=== PATIENT | female | born 1965 | race Two or more races ===

== ENCOUNTER 2016-11-04 19:53 | Emergency (ER) | payer SELFPAY ==
[2015-09-22 12:31] VITALS: BMI 44.8
[~2016-11-04 19:53] MED LIST: ASPIRIN325 MG PO; PROTONIX40 MG PO; VENTOLIN HFA18 GM INH
[2016-11-04 20:28] LABS: BASOPHILS 0.2 % (0.0-2.0); EOSINOPHILS 2.4 % (0-7); HEMATOCRIT 36.4 % (36.0-48.0); HEMOGLOBIN 12.4 g/dL (12-16); IMMATURE GRANULOCYTES 0.2 % (0-5); LYMPHOCYTES 40.6 % (15-50); MCHC 34.1 g/dL (31.0-37.0); MCV 88.1 fL (80.0-100.0); MONOCYTES 5.1 % (2-11); NEUTROPHILS 51.5 % (40-80); PLATELET COUNT 246 10x3/uL (130-400); RBC 4.13 10x6/uL (4.00-5.40); RDW 12.6 % (11.5-14.5); WBC 6.3 10x3/uL (4.8-10.8)
[2016-11-04 21:01] LABS: ALBUMIN 3.1 g/dL (3.4-5.0); ALKALINE PHOSPHATASE 81 U/L (46-116); ALT (SGPT) 18 U/L (10-68); BILIRUBIN - TOTAL 0.51 mg/dL (0.2-1.3); CALC OSMOLALITY 282 mosm/kg (275-300); CALCIUM 8.6 mg/dL (8.5-10.1); CARBON DIOXIDE 26.8 mmol/L (21.0-32.0); CHLORIDE - SERUM 106 mmol/L (98-107); CHOL - HDL RATIO 2.5 ratio (2.3-4.1); CHOLESTEROL, TOTAL 102 mg/dL (0-200); CKMB 1.2 U/L (0.0-3.6); CREATINE KINASE 162 UL (21-215); CREATININE - SERUM 0.7 mg/dL (0.6-1.3); GLUCOSE 102 mg/dL (74-106); HDL CHOLESTEROL 41 mg/dL (32-96); LDL CHOLESTEROL 44 mg/dL (0-100); LDL-HDL RATIO 1.1 ratio (1.5-3.5); PROTEIN - SERUM 6.7 g/dL (6.4-8.2); SODIUM 142 mmol/L (136-145); TRIGLYCERIDE 85 mg/dL (30-200); TROPONIN-I < 0.017 ng/mL (0.000-0.060); UREA NITROGEN 13 mg/dL (7-18); eGFR NON AFRICAN AMERICAN > 90 mL/min (90-120)
[2016-11-04 21:02] LABS: POTASSIUM - SERUM 2.5 mmol/L (3.5-5.1)
== END 2016-11-04 22:12 | disposition home or self-care (01) ==
LOC: D.ER 19:53
PROVIDERS: Family Medicine
DX: R07.9 Chest pain, unspecified (principal); J45.909 Unspecified asthma, uncomplicated; R13.10 Dysphagia, unspecified; E87.6 Hypokalemia

== ENCOUNTER 2016-11-08 10:23 | Outpatient (CLI) | payer SELFPAY ==
[2015-09-22 12:31] VITALS: BMI 44.8
--- NOTE | ~2016-11-08 | HEMODYNAMI ---
PATIENT:MARKUS EL MEDICAL RECORD: [id number] : 65 [id number] ADMISSION DATE: 11/08/16 Generatedon:11/08/201611:22 Patient name: MARKUS EL Patient #: [id number] SSN: : 1965 Date of study: 11/08/2016 Page: Of Hemodynamic Procedure Report Patient Data Patient Demographics Procedure consent was obtained First Name: MARKUS Gender: Female Last Name: SIENNA : 1965 Middle Initial: M Age: 51 year(s) Patient #: [id number] Race: Other Additional ID: [id number] Contact details Address: [address] [place] [address] [address] State: [place] City: [facility] Zip code: [address] Past Medical History Allergies: No known allergies Admission Admission Data Admission Date: 11/08/2016 Admission Time: 7:55 Weight (lbs.): 172 Weight (kg.): 78.02 Lab Results Lab Result Date: 11/08/2016 Lab Result Time: 0:00 Biochemistry Name Units Result Min Max BUN mg/dl 10 --(-*--)-- 7 18 Creatinine mg/dl 0.7 --(*---)-- 0.6 1.3 Potassium mmol/l 2.8 *-(----)-- 3.5 5.1 CBC Name Units Result Min Max Hemoglobin g/dl 12.8 -*(----)-- 13.5 17.5 Procedure Procedure Types Cath Procedure Diagnostic Procedure LHC LHC w/Coronaries Procedure Description Procedure Date Procedure Date: 11/08/2016 Procedure Start Time: 11:14 Procedure End Time: 11:18 Procedure Staff Name Function Deshaun Cuello MD Performing Physician Pamela Mclaughlin RT Scrub Myrna Guerra RN Nurse Delon Day RT Monitor Indication Angina Procedure Data Cath Procedure Fluoroscopy Diagnostic fluoroscopy Total fluoroscopy Time: 0.7 time: 0.7 min min Diagnostic fluoroscopy Total fluoroscopy dose: 159 dose: 159 mGy mGy Contrast Material Contrast Material Type Amount (ml) Isovue 300 40 Entry Location Entry Primary Successful Side Size Upsize Upsize Entry Closure Succes sful Closure Location (Fr) 1 (Fr) 2 (Fr) Remarks Device Remarks Femoral Right 5 Fr Vascade artery Closure System Diagnostic catheters Device Type Used For End Catheter Placement Cordis 5Fr Pigtail LV Angiography Catheter (MP) Cordis 5Fr JL 4.0 Left Coronary Catheter (MP) Angiography Cordis 5Fr 3DRC Catheter Right Coronary (MP) Angiography Procedure Complications No complications Procedure Medications Medication Administration Route Dosage Oxygen NC 2 l/min Heparin Flush Bag added to field 2 bags (1000units/500ml NS) Lidocaine 2% added to field 20 Versed I.V. 1 mg Fentanyl I.V. 50 mcg Fentanyl I.V. 50 mcg Versed I.V. 1 mg Fentanyl I.V. 25 mcg Versed I.V. 0.5 mg Hemodynamics Rest HGB: 12.8 (g/dl) Heart Rate: 67 (bpm) Snapshots Pre Cath Intra NCS Post Cath Vital Signs Time Heart Resp SPO2 NIBP Rhythm Pain Sedation Rate (ipm) (%) (mmHg) Status Level (bpm) 10:54:56 69 17 99 115/75(98) NSR 0 (11) 10(A) , No pain 10:59:10 71 15 100 114/78(91) NSR 0 (11) 10(A) , No pain 11:03:24 79 14 99 107/62(82) NSR 0 (11) 10(A) , No pain 11:07:36 86 15 95 107/68(87) NSR 0 (11) 10(A) , No pain 11:11:45 73 14 96 108/72(83) NSR 0 (11) 10(A) , No pain 11:15:53 91 14 95 97/68(79) NSR 0 (11) 9(A) , No pain 11:20:50 87 15 96 102/70(84) NSR 0 (11) 9(A) , No pain Medications Time Medication Route Dose Verified Delivered Reason Notes Effec tiveness by by 10:54:28 Oxygen NC 2 Deshaun Dobbinsecca Per l/min Khushboo Guerra RN physician 10:54:35 Heparin Flush added 2 Deshaun Meade used for Bag to bags Khushboo Cuello MD procedure (1000units/500ml field NS) 10:54:42 Lidocaine 2% added 20ml Deshaun Meade used for to vial Khushboo Cuello MD procedure field 11:12:41 Fentanyl I.V. 50 Deshaun Myrna for mcg Khushboo Guerra RN sedation 11:12:51 Versed I.V. 1 mg Deshaun Myrna for Khushboo Guerra RN sedation 11:14:44 Fentanyl I.V. 50 Deshaun Myrna for mcg Khushboo Guerra RN sedation 11:14:46 Versed I.V. 1 mg Deshaun Myrna for Khushboo Guerra RN sedation 11:15:42 Fentanyl I.V. 25 Deshaun Myrna for mcg Khushboo Guerra RN sedation 11:15:51 Versed I.V. 0.5 Deshaun Myrna for mg Khushboo Guerra RN sedation Procedure Log Time Note 10:30:53 Myrna Guerra RN sent for patient. Start room use. 10:42:31 Diagnostic Cath Status : Elective 10:42:50 Indication : Angina 10:43:00 Time tracking: Regular hours 10:43:04 Plan of Care:Hemodynamics will remain stable., Cardiac rhythm will remain stable., Comfort level will be maintained., Respiratory function will remain adequate., Patient/ family verbilizes understanding of procedure., Procedure tolerated without complication., Recovers from procedure without complications.. 10:47:27 Patient received from ED to CCL 1 Alert and oriented. Tansferred to table in Supine position. 10:47:28 Warm blankets applied, and artis hugger turned on for patient comfort. 10:47:29 Correct patient and procedure confirmed by team. 10:47:30 Signed procedure consent form obtained from patient. 10:47:31 ECG and BP/O2 sat monitors applied to patient. 10:53:47 Baseline sample Acquired. 10:53:47 Vital chart was started 10:54:11 Rhythm: sinus rhythm 10:54:12 Full Disclosure recording started 10:54:18 H&P Date Dictated: 11/08/2016 Within 30 days and on chart.. 10:54:18 Pre-procedure instructions explained to patient. 10:54:19 Pre-op teaching completed and patient verbalized understanding. 10:54:21 Family unavailable. 10:54:23 Patient NPO since Midnight. 10:54:28 Oxygen 2 l/min NC was given by Myrna Guerra RN; Per physician; 10:54:35 Heparin Flush Bag (1000units/500ml NS) 2 bags added to field was given by Deshaun Cuello MD; used for procedure; 10:54:42 Lidocaine 2% 20ml vial added to field was given by Deshaun Cuello MD; used for procedure; 10:54:44 family went home to get his meds. 10:55:18 Patient allergic to No known allergies 10:55:20 Is the patient allergic to Iodine/contrast media? No. 10:55:22 Is patient on blood thinner?No 10:55:26 Patient diabetic? No. 10:55:41 ----Pre-sedation anethsthesia assessment.---- 10:55:43 Previous problem with sedation/anesthesia? No ? 10:55:44 Snore? Yes 10:55:46 Sleep apnea? No 10:55:47 Deviated septum? No 10:55:48 Opens mouth fully? Yes 10:55:50 Sticks out tongue? Yes 10:55:51 Airway obstruction? No ? 10:55:53 Dentures? No ? 10:55:55 Pre procedure: right dorsailis pedis pulse 1+ Palpable, but thready & weak; easily obliterated 10:55:59 Modified Eagle's test Ulnar > 7 seconds. 10:56:01 Patient pain scale 0/10 ?. 10:56:14 IV patent on arrival in left antecubital with 0.9% NaCl at 10ml/hr. 10:58:28 HCG/Urine : not drawn 10:58:30 Patient not . Patient has had tubal. 10:59:09 Lab Result : BUN 10 mg/dl 10:59:09 Lab Result : Potassium 2.8 mmol/l 10:59:09 Lab Result : Creatinine 0.7 mg/dl 10:59:09 Lab Result : Hemoglobin 12.8 g/dl 10:59:13 Lab results completed and on chart. 10:59:15 Right groin area was prepped with chlora-prep and draped in sterile fashion 10:59:16 Alarms reviewed by Nav Millan 10:59:16 - 10:59:17 Sharps counted by scrub and verified by RJuliánNJulián 10:59:22 Use device set Femoral Dx 10:59:22 Acist Syringe opened to sterile field. 10:59:23 Bag Decanter opened to sterile field. 10:59:23 Cardinal Cath Pack opened to sterile field. 10:59:23 Terumo 5Fr [place] Sheath opened to sterile field. 10:59:24 [place] 260cm J .035 wire opened to sterile field. 10:59:25 Acist Hand Control opened to sterile field. 10:59:25 Acist Manifold opened to sterile field. 10:59:26 Cordis Infinity 5Fr Multipack catheter opened to sterile field. 10:59:27 Tegaderm 4 x 4 opened to sterile field. 11:00:14 Patient Weight : 78.02 lbs 11:05:21 Zero performed for pressure channel P1 11:06:12 Zero performed for pressure channel P1 11:06:17 Zero performed for pressure channel P1 11:06:28 Zero performed for pressure channel P1 11:06:32 Zero performed for pressure channel P1 11:06:36 Zero performed for pressure channel P1 11:12:35 --------ALL STOP TIME OUT------ 11:12:36 Final Timeout: patient, procedure, and site verified with staff and physician. All members of the team are in agreement. 11:12:37 Right groin site verified by team. 11:12:40 Physical assessment completed. ASA score P 2 - A patient with mild systemic disease as per Deshaun Cuello MD. 11:12:41 Fentanyl 50 mcg I.V. was given by Myrna Guerra RN; for sedation; 11:12:44 Sedation plan: IV Moderate Sedation Versed, Fentanyl 11:12:51 Versed 1 mg I.V. was given by Myrna Guerra RN; for sedation; 11:13:52 Procedure started. 11:14:04 Local anesthetic to right femoral artery with Lidocaine 2% by Deshaun Cuello MD.INITIAL ACCESS ONLY 11:14:11 A 5 Fr sheath was inserted into the Right Femoral artery 11:14:44 Fentanyl 50 mcg I.V. was given by Myrna Guerra RN; for sedation; 11:14:46 Versed 1 mg I.V. was given by Myrna Guerra RN; for sedation; 11:15:13 A Cordis 5Fr Pigtail Catheter (MP) was advanced over the wire and used for LV Angiography. 11:15:16 LV gram done using JUAREZ 11:15:22 EF : 50 % 11:15:23 Catheter removed. 11:15:28 A Cordis 5Fr JL 4.0 Catheter (MP) was advanced over the wire and used for Left Coronary Angiography. 11:15:32 LCA angiography performed. 11:15:42 Fentanyl 25 mcg I.V. was given by Myrna Guerra RN; for sedation; 11:15:51 Versed 0.5 mg I.V. was given by Myrna Guerra RN; for sedation; 11:16:25 Catheter removed. 11:16:32 A Cordis 5Fr 3DRC Catheter (MP) was advanced over the wire and used for Right Coronary Angiography. 11:17:22 RCA angiography performed. 11:17:23 Catheter removed. 11:17:28 Vascade 5Fr Closure Device opened to sterile field. 11:17:40 Sheath removed intact; hemostasis achieved with Vascade Closure System to the Right Femoral artery. 11:17:42 Procedure ended.(Physican Out) 11:17:45 Fluoroscopy time 00.70 minutes. 11:17:49 Flurop Dose total: 159 11:17:49 Fluoroscopy dose: 159 mGy 11:17:58 Contrast amount:Isovue 300 40ml. 11:17:59 Sharps counted by scrub and verified by R.N. 11:18:01 Insertion/operative site no bleeding no hematoma. 11:18:04 Post-op/insertion site Right Femoral artery dressed using a 4 x 4 and Tegaderm. 11:18:06 Post right femoral artery:stable 11:18:07 Post Procedure Pulses reassessed and unchanged 11:18:09 Post procedure: right dorsailis pedis pulse 1+ Palpable, but thready & weak; easily obliterated. 11:18:13 Post procedure rhythm: sinus rhythm 11:18:14 Post procedure instruction explained to patient.Patient verbalizes understanding. 11:18:25 Procedure and supply charges have been captured, reviewed, submitted an d are correct. 11:18:29 Procedure Complication : No complications 11:18:39 Vital chart was stopped 11:18:39 See physician's report for complete and final results. 11:18:41 Report given to Post Procedure Room. 11:18:45 Patient transfered to Post Procedure Room with Stretcher. 11:18:51 Procedure ended. 11:18:51 Full Disclosure recording stopped 11:18:56 End room use (Document Last) Device Usage Item Name Manufacture Quantity Catalog Number Hospital Part Current Minimal Lot# / Charge Number Stock Stock Serial# Code Acist Acist 1 25799 [id number] 227519 [id number] 20 Syringe Medical Systems Inc Bag Microtek 1 2002S 669288 58029 005747 5 Decanter Medical Inc. Cardinal Cardinal 1 [id number] 307730 60849 838340 5 Cath Pack Health Terumo Terumo 1 [id number] 358146 082121 255200 [address] [place] [address] [facility] [place] 1 363051 570243 023100 265017 30 260cm J .035 wire Acist Acist 1 48751 926343 127115 963459 5 Hand Medical Control Systems Inc Acist Acist 1 67246 767070 898298 489240 5 Manifold Medical Systems Inc Cordis Cardinal 1 [id number] 013724 70264 954750 30 Infinity Health 5Fr Multipack catheter Tegaderm 3M 1 [id number] 227424 897744 208685 5 4 x 4 Cordis Cardinal 1 917960 5 5Fr Health Pigtail Catheter (MP) Cordis Cardinal 1 [id number] 5 5Fr JL Health 4.0 Catheter (MP) Cordis Cardinal 1 [id number] 5 5Fr [facility] Health Catheter (MP) Vascade Cardiva 1 [id number] 062721 28652 278610 10 5Fr Medical, Closure Inc. Device Signature Audit [place] Stage Time Signature Unsigned Intra-Procedure 11/08/2016 Delon Day 11:22:11 AM RT(R) Signatures Monitor : Delon Day RT Signature : Date : Time : [place] [address] [place] [address]
[2016-11-08 08:24] LABS: BASOPHILS 0.1 % (0.0-2.0); EOSINOPHILS 1.2 % (0-7); HEMATOCRIT 38.2 % (36.0-48.0); HEMOGLOBIN 12.8 g/dL (12-16); IMMATURE GRANULOCYTES 0.1 % (0-5); LYMPHOCYTES 13.9 % (15-50); MCH 30.1 pg (26.0-34.0); MCHC 33.5 g/dL (31.0-37.0); MCV 89.9 fL (80.0-100.0); MEAN PLATELET VOLUME 10.2 fL (7.4-10.4); MONOCYTES 5.5 % (2-11); NEUTROPHILS 79.2 % (40-80); PLATELET COUNT 207 10x3/uL (130-400); RBC 4.25 10x6/uL (4.00-5.40); RDW 13.1 % (11.5-14.5); WBC 8.8 10x3/uL (4.8-10.8)
[2016-11-08 08:55] LABS: ALBUMIN 3.1 g/dL (3.4-5.0); ALKALINE PHOSPHATASE 65 U/L (46-116); ALT (SGPT) 17 U/L (10-68); CALC OSMOLALITY 274 mosm/kg (275-300); CALCIUM 8.6 mg/dL (8.5-10.1); CHLORIDE - SERUM 103 mmol/L (98-107); CKMB 0.5 U/L (0.0-3.6); CREATINE KINASE 121 UL (21-215); CREATININE - SERUM 0.7 mg/dL (0.6-1.3); GLUCOSE 101 mg/dL (74-106); SODIUM 138 mmol/L (136-145); TROPONIN-I < 0.017 ng/mL (0.000-0.060); UREA NITROGEN 10 mg/dL (7-18); eGFR NON AFRICAN AMERICAN > 90 mL/min (90-120)
[2016-11-08 08:57] LABS: POTASSIUM - SERUM 2.8 mmol/L (3.5-5.1)
--- NOTE | 2016-11-08 11:43 | NUR ---
RESTING IN BED, RESPONDS TO VERBAL STIMULI. VSS. RIGHT GROIN CDI, NO HEMATOMA NOTED. ON 2L NC, NO DISTRESS NOTED. WILL CONTINUE TO MONITOR.
--- NOTE | 2016-11-08 12:15 | NUR ---
RESTING WITH HEAD FLAT ON PILLOW. VSS, NO C/O CHEST PAIN OR NAUSEA. WILL CONTINUE TO MONITOR.
--- NOTE | 2016-11-08 12:45 | NUR ---
HOB ELEVATED 30 DEGREES, AWAKE SPEAKING WITH FAMILY AT BEDSIDE. VSS, 2L NC, NO DISTRESS NOTED. RIGHT GROIN DRSG CDI, NO BLEEDING OR HEMATOMA NOTED.
--- NOTE | 2016-11-08 13:19 | NUR ---
UP TO SIDE OF BED, THEN AMBULATED TO RESTROOM TO VOID.
--- NOTE | 2016-11-08 13:22 | NUR ---
LEFT AC IV D/C'D WITH CATHETER INTACT. BANDAID PLACED TO SITE.
--- NOTE | 2016-11-08 13:33 | NUR ---
TAKEN DOWNSTAIRS VIA WHEELCHAIR BY MEMBER OF CATH CARE TEAM.
--- NOTE | 2016-11-14 14:16 | OP ---
PATIENT NAME: MARKUS EL MEDICAL RECORD: [id number] :65 LOCATION:[facility] ADMISSION DATE: SURGEON: LAMAR FINNEGAN MD DATE OF OPERATION: 11/08/2016 PROCEDURES: 1. Left heart catheterization. 2. Selective coronary angiography. 3. Left ventriculogram. INDICATION: Chest pain compatible with angina. PROCEDURE IN DETAIL: After informed consent was obtained and after detailed explanation of risks, benefits, as well as alternative therapies, the patient elected to proceed with angiogram and heart catheterization. The right femoral area was prepped and draped in normal sterile fashion. The right femoral artery was cannulated via modified Seldinger technique with placement of 5-Thai sheath. All catheters exchanged through this sheath. FINDINGS: The left ventriculogram was performed in standard 30-degree JUAREZ view, reveals good cardiac wall motion throughout all segments. Overall ejection fraction estimated at 60%. SELECTIVE CORONARY ANGIOGRAPHY: Left main, left anterior descending, left circumflex, and right coronary artery are all smooth-walled vessels with no angiographic evidence of coronary artery disease. OVERALL IMPRESSION: 1. No angiographic evidence of coronary artery disease. 2. Normal left heart pressures. 3. Normal left ventricular systolic function. Chest pain is noncardiac in etiology. TRANSINT:[id number] Voice Confirmation ID: [id number] DOCUMENT ID: [id number] LAMAR FINNEGAN MD at 1416 CC: [id number] DICTATION DATE: 11/08/16 1120 RIVET HAMMER MACHINE OPERATOR: 11/08/16 1131 DEP CLI 11/08/16 [place] [id number]
--- NOTE | 2016-11-14 14:16 | CN ---
PATIENT NAME:MARKUS MIDDLETON MEDICAL RECORD: [id number] : 65 LOCATION:[facility] ADMIT DATE: ACCOUNT: [id number] CONSULTING PHYSICIAN: LAMAR FINNEGAN MD REFERRING PHYSICIAN: LAMAR FINNEGAN MD DATE OF CONSULTATION: 11/08/2016 Cardiology Consultation DIAGNOSES: 1. Chest pain compatible with angina. 2. Family history of coronary artery disease. 3. Past smoking history. HISTORY OF PRESENT ILLNESS: Mrs. Middleton presented Monday with chest pain compatible with angina, she was sent out. She has had recurrent chest pain over the weekend, severe chest pain this morning. Her chest pain is very compatible with angina. She has a pressure-like sensation across the anterior chest with radiation to her jaw, today with the most dramatic and worst episode she had. She also had diaphoresis with this. PHYSICAL EXAMINATION: GENERAL APPEARANCE: Well-nourished, well-developed, appears stated age. Level of distress, comfortable. PSYCHIATRIC: Mental status, alert, normal affect. Orientation, oriented to time, place and person. EYES: Lids and conjunctiva, noninjected. No discharge, no pallor. ENT: Lips, teeth, gums, normal dentition. Oropharynx, no cyanosis, no pallor. NECK: Carotid arteries, bilateral normal upstroke, no bruits, no thrills. JUGULAR VEINS: No jugular venous pressure or distention. CERVICAL LYMPH NODES: Nontender, nonenlarged. THYROID: Not enlarged. Nontender. No nodules. LUNGS: Respiratory effort, unlabored. CHEST: Normal curvature. No thoracic deformity. No chest wall tenderness. Percussion, resonant. Auscultation, clear. No wheezes, no rales, no rhonchi. CARDIOVASCULAR: Precordial exam, nondisplaced. No heaves or pericardial thrills. Rate and rhythm, regular. Heart sounds, normal S1, normal S2. No S3, no gallop, no rub. Systolic murmur, not heard. Diastolic murmur, not heard. EXTREMITIES: No cyanosis, no edema. Peripheral pulses, full and equal in all extremities, except as noted. No bruits appreciated. ABDOMEN: Soft, nondistended. Normal aorta. No bruit. Nontender. No masses. Liver, nontender, no hepatomegaly. Spleen, nontender, no splenomegaly. MUSCULOSKELETAL: No joint tenderness. No joint swelling. No erythema. NEUROLOGICAL: Normal gait, normal strength, normal tone. SKIN: Warm and dry. REVIEW OF SYSTEMS: The patient reports easy bruising but reports no swollen glands. The patient reports no fever, no night sweats, no significant weight gain, no significant weight loss. No significant exercise tolerance. The patient reports no dry eyes, no irritation, no vision change. Patient reports no difficulty hearing and no ear pain. Patient reports no frequent nose bleeds or nose and sinus problems. Patient reports on arm pain on exertion. No shortness of breath while lying down. No history of heart murmur. Patient reports no cough, no wheezing or coughing up blood. Patient reports no abdominal pain, no vomiting. Normal appetite. No diarrhea and not vomiting CONSULT REPORT [id number] MARKUS MIDDLETON blood. No nausea and no constipation. Patient reports no incontinence. No difficulty urinating. No hematuria. No increased frequency. Patient reports no muscle aches. No weakness, no arthralgias, no back pain. No swelling of the extremities. Patient reports no abnormal mole, no jaundice, no rashes. Reports no loss of consciousness. No weakness and no numbness. No seizures, dizziness, or headaches. The patient reports no depression, no sleep disturbance, feeling safe in a relationship and no alcohol abuse. Patient reports on fatigue. Reports no runny nose or sinus pressure. No itching, no hives, and no frequent sneezing. OVERALL IMPRESSION: Recurrent chest pain compatible with angina. We will proceed with coronary angiography. Further care depends upon findings of the angiography. TRANSINT:[id number] Voice Confirmation ID: [id number] DOCUMENT ID: [id number] LAMAR FINNEGAN MD at 1416 CC: [id number] DICTATION DATE: 11/08/16 0952 BAIT PACKER: 11/08/16 1008 DEP CLI 11/08/16 [place] [id number] [place] [id number]
== END 2016-11-08 13:30 | disposition home or self-care (01) ==
LOC: D.ER 10:23 → D.OPS 10:23 → EDSTATUS 12:30 → D.OPS 13:30
PROVIDERS: Emergency Medicine
DX: R07.89 Other chest pain (principal)

== ENCOUNTER 2017-07-28 03:42 | Emergency (ER) | payer SELFPAY ==
[2015-09-22 12:31] VITALS: BMI 44.8
[2017-07-28 04:11] LABS: BASOPHILS 0.3 % (0-2); EOSINOPHILS 3.5 % (0-7); HEMATOCRIT 38.8 % (36.0-48.0); HEMOGLOBIN 13.3 g/dL (12-16); LYMPHOCYTES 40.3 % (15-50); MCH 30.6 pg (26.0-34.0); MCHC 34.3 g/dL (31.0-37.0); MCV 89.2 fL (80.0-100.0); MONOCYTES 6.2 % (2-11); NEUTROPHILS 49.7 % (40-80); PLATELET COUNT 212 10x3/uL (130-400); RBC 4.35 10x6/uL (4.00-5.40); RDW 12.7 % (11.5-14.5); WBC 6.8 10x3/uL (4.8-10.8)
[2017-07-28 04:22] LABS: ALBUMIN 3.3 g/dL (3.4-5.0); ALKALINE PHOSPHATASE 111 U/L (46-116); ALT (SGPT) 17 U/L (10-68); BILIRUBIN - TOTAL 0.31 mg/dL (0.2-1.3); CALC OSMOLALITY 279 mosm/kg (275-300); CALCIUM 8.7 mg/dL (8.5-10.1); CARBON DIOXIDE 27.5 mmol/L (21.0-32.0); CHLORIDE - SERUM 107 mmol/L (98-107); CREATININE - SERUM 0.6 mg/dL (0.6-1.3); GLUCOSE 92 mg/dL (74-106); POTASSIUM - SERUM 3.4 mmol/L (3.5-5.1); SODIUM 141 mmol/L (136-145); UREA NITROGEN 11 mg/dL (7-18); eGFR NON AFRICAN AMERICAN > 90 mL/min (90-120)
[2017-07-28 04:30] LABS: CHOL - HDL RATIO 2.2 ratio (2.3-4.1); CHOLESTEROL, TOTAL 113 mg/dL (0-200); CKMB 0.4 U/L (0.0-3.6); CREATINE KINASE 120 UL (21-215); HDL CHOLESTEROL 51 mg/dL (32-96); LDL CHOLESTEROL 36 mg/dL (0-100); LDL-HDL RATIO 0.7 ratio (1.5-3.5); PRO BNP 97 pg/mL (0-125); TRIGLYCERIDE 131 mg/dL (30-200)
[2017-07-28 04:52] LABS: TROPONIN-I < 0.017 ng/mL (0.000-0.060)
== END 2017-07-28 05:00 | disposition home or self-care (01) ==
LOC: D.ER 03:42
PROVIDERS: Family Medicine
DX: R07.89 Other chest pain (principal)

== ENCOUNTER 2017-10-19 11:26 | Observation (INO) | payer MEDICAID ==
[~2017-10-19] VITALS: Ht 157.5 cm; Wt 65.0 kg
[2017-10-19 12:37] LABS: BASOPHILS 0.1 % (0-2); HEMATOCRIT 38.9 % (36.0-48.0); HEMOGLOBIN 13.2 g/dL (12-16); LYMPHOCYTES 6.8 % (15-50); MCH 30.3 pg (26.0-34.0); MCHC 33.9 g/dL (31.0-37.0); MCV 89.2 fL (80.0-100.0); MEAN PLATELET VOLUME 9.8 fL (7.4-10.4); MONOCYTES 5.1 % (2-11); PLATELET COUNT 180 10x3/uL (130-400); RBC 4.36 10x6/uL (4.00-5.40); RDW 12.5 % (11.5-14.5)
[2017-10-19 12:59] LABS: ALBUMIN 3.4 g/dL (3.4-5.0); ALKALINE PHOSPHATASE 66 U/L (46-116); ALT (SGPT) 15 U/L (10-68); BILIRUBIN - TOTAL 0.32 mg/dL (0.2-1.3); CALC OSMOLALITY 277 mosm/kg (275-300); CALCIUM 8.7 mg/dL (8.5-10.1); CARBON DIOXIDE 26.7 mmol/L (21.0-32.0); CHLORIDE - SERUM 103 mmol/L (98-107); CREATININE - SERUM 0.7 mg/dL (0.6-1.3); GLUCOSE 109 mg/dL (74-106); POTASSIUM - SERUM 3.6 mmol/L (3.5-5.1); SODIUM 140 mmol/L (136-145); UREA NITROGEN 8 mg/dL (7-18); eGFR NON AFRICAN AMERICAN > 90 mL/min (90-120)
[2017-10-20 03:27] VITALS: BP 87/56; BMI 26.2
[2017-10-20 04:00] VITALS: BP 99/64
[2017-10-20 08:17] VITALS: BP 98/69
[2017-10-20 11:12] VITALS: Ht 157.5 cm; Wt 65.0 kg
[2017-10-20] MEDS ORDERED: TAMIFLU75 MG PO (11:13)
== END 2017-10-20 12:44 | disposition home or self-care (01) ==
LOC: D.ER 11:26 → OBSVTIME 19:22 → D.MS 19:22
PROVIDERS: Emergency Medicine
DX: J11.1 Influenza due to unidentified influenza virus with other respiratory manifestations (principal); R53.1 Weakness; I95.9 Hypotension, unspecified; R00.0 Tachycardia, unspecified; R13.10 Dysphagia, unspecified

== ENCOUNTER 2018-01-11 22:22 | Emergency (ER) | payer MEDICAID ==
[2017-10-20 11:12] VITALS: BMI 26.2
[~2018-01-11 22:22] MED LIST changes: +TAMIFLU75 MG PO
== END 2018-01-11 23:15 | disposition home or self-care (01) ==
LOC: D.ER 22:22
DX: S39.012A Strain of muscle, fascia and tendon of lower back, initial encounter (principal); W01.0XXA Fall on same level from slipping, tripping and stumbling without subsequent striking against object, initial encounter; Y93.89 Activity, other specified; Y92.019 Unspecified place in single-family (private) house as the place of occurrence of the external cause; M62.830 Muscle spasm of back

== ENCOUNTER → 2019-04-16 08:29 | Outpatient (CLI) | payer MEDICAID ==
[2017-10-20 11:12] VITALS: BMI 26.2
== END | disposition home or self-care (01) ==
LOC: D.RAD 08:29
PROVIDERS: ATTEND Internal Medicine Gastroenterology
DX: R13.10 Dysphagia, unspecified (principal); R11.2 Nausea with vomiting, unspecified; R12 Heartburn